=== PATIENT | female | born 1950 | race Caucasian/White ===

== ENCOUNTER 2020-04-15 09:45 | Inpatient (IN) ==
[2020-04-15] MEDS ORDERED: Dexamethasone 4 MG/ML VIAL ONE (11:11)
[2020-04-15] MEDS ORDERED: Lidocaine -MPF 2% 2 ML VIAL ONE (11:11)
[2020-04-15] MEDS ORDERED: *HR* Rocuronium Bromide 50 MG/5 ML VIAL ONE (11:11)
[2020-04-15] MEDS ORDERED: Ondansetron 4 MG/2 ML VIAL ONE (11:11)
[2020-04-15] MEDS ORDERED: *HR* FentaNYL (PF) 100 MCG/2 ML VIAL ONE (11:12)
[2020-04-15] MEDS ORDERED: *HR* Propofol 200 MG/20 ML VIAL IVP ONE ×2 (11:12→11:50)
[2020-04-15] MEDS ORDERED: Ringers Solution, Lactated 1,000 ML IVC SCH (11:15)
[2020-04-15] MEDS ORDERED: *HR* HYDROmorphone PF 0.5 MG/0.5 ML SYRINGE IVP PRN (11:30)
[2020-04-15] MEDS ORDERED: Ondansetron 4 MG/2 ML VIAL IVP ONE (11:30)
[2020-04-15] MEDS ORDERED: *HR* OxyCODONE Immed Rel 5 MG TABLET PO PRN (11:30)
[2020-04-15] MEDS ORDERED: *HR* HYDROMORPHONE 2 MG/ML VIAL ONE (11:30)
[2020-04-15] MEDS ORDERED: ceFAZolin 2,000 MG in Water for inj. (sterile) 20 ML IVP ONE (13:00)
[2020-04-15] MEDS ORDERED: CeFAZolin Syr 2,000MG/20 ML 2,000 MG/20 ML SYRINGE IVPB ONE (13:09)
[2020-04-15] MEDS ORDERED: Isovue-300 50ML VIAL ONE (13:28)
[2020-04-15] MEDS ORDERED: Isovue-300 200 mL Infus..BTL ONE (13:28)
[2020-04-15] MEDS ORDERED: *HR* PHENYLEPHRINE 1,000 MCG/10 ML SYRINGE IVP ONE (14:14)
[2020-04-15] MEDS ORDERED: EPHEDrine 50 MG/ML VIAL ONE (14:35)
[2020-04-15] MEDS ORDERED: Heparin 1,000 UNITS/500 mL 1,500 ML ONE (16:09)
[2020-04-15] MEDS ORDERED: Naloxone 0.4 MG/ML INJ IVP PRN (16:59)
[2020-04-15] MEDS ORDERED: *HR* HYDROcodone/Acet 5/325 mg TABLET PO PRN (16:59)
[2020-04-15] MEDS ORDERED: *HR* Labetalol 20 MG/4 ML SYRINGE IVP PRN (16:59)
[2020-04-15] MEDS ORDERED: Ondansetron 4 MG/2 ML VIAL IVP PRN (16:59)
[2020-04-15] MEDS ORDERED: Acetaminophen 325 MG TABLET PO PRN (16:59)
[2020-04-15] MEDS ORDERED: traZODone 50 MG TABLET PO SCH (21:00)
[2020-04-15] MEDS: CeFAZolin 2 GM/120 ML BAG IVPB SCH (22:07)
[2020-04-15] MEDS: amLODIPine 5 MG TABLET PO SCH (22:08)
[2020-04-16] MEDS: CeFAZolin 2 GM/120 ML BAG IVPB SCH ×2 (06:06→13:29)
[2020-04-16] MEDS: amLODIPine 5 MG TABLET PO SCH (07:59)
[2020-04-16 11:41] VITALS: BP 113/59
== END 2020-04-16 14:55 | disposition home or self-care (01) | DRG 254 ==
LOC: SAMDAY 09:45 → 2NNU 17:02
PROVIDERS: ADMIT Surgery Vascular Surgery; ATTEND Surgery Vascular Surgery